=== PATIENT | male | born 1945 | race Caucasian/White ===

== ENCOUNTER 2017-08-01 20:21 | Emergency (ER) | payer MEDICARE, OTHER ==
[~2017-08-01] VITALS: Ht 180.3 cm; Wt 77.3 kg
[2017-08-01 20:26] VITALS: BP 100/62; PULSE 78; RESP 16; O2SAT 94
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
[2017-08-01 21:06] LABS: BASOPHILS % (AUTO) 0.4 % (0-3); EOSINOPHILS % (AUTO) 0.7 % (0-5); MONOCYTES % (AUTO) 11.4 % (4-12); Mean Corpuscular Hemoglobin 34.4 pg (27.0-35.0); Mean Corpuscular Volume 99.1 fL (81-100); NEUTROPHILS % (AUTO) 58.7 % (40-74); Platelet Count 151 bil/L (150-400)
[2017-08-01 21:26] LABS: INR 2.93 ratio
== END 2017-08-01 21:46 ==
LOC: SED 20:21
DX: F10.120 Alcohol abuse with intoxication, uncomplicated (principal); Z88.0 Allergy status to penicillin
CPT/HCPCS: 36415; 80048; 85025; 85610; 99283; G0480